=== PATIENT | female | born 1950 | race African-American/Black ===

== ENCOUNTER 2018-12-22 11:25 | Inpatient (IN) | payer MEDICARE, OTHER, MEDICAID ==
[~2018-12-22] VITALS: Ht 154.9 cm; Wt 49.9 kg
[~2018-12-22 11:25] MED LIST: METHODONE; NORVAIR
[2018-12-22 13:34] LABS: HEMATOCRIT. 30.4 % (36.0-48.0); HEMOGLOBIN. 9.7 g/dL (12.0-16.0); MEAN CORPUSCULAR HEMOGLOBIN 24.5 pg (28.0-32.0); MEAN CORPUSCULAR VOLUME 76.7 fL (81.0-99.0); MEAN PLATELET VOLUME 8.4 fl (7.4-10.4); PLATELET 174 x1000/uL (130-400); RED BLOOD CELL COUNT 3.97 mill/uL (4.2-5.4); RED CELL DISTRIBUTION WIDTH 17.4 % (11.6-14.6)
[2018-12-22 13:40] LABS: CHLORIDE 103 mEq/L (98-107)
[2018-12-22 13:44] LABS: ETHANOL BLOOD < 10 mg/dL
[2018-12-22 14:00] LABS: PLATELET ESTIMATE NORMAL
[2018-12-22] MEDS ORDERED: CLONIDINE 0.1MG TABLET PO PRN (15:30)
[2018-12-22] MEDS ORDERED: LEVOFLOXACIN 500MG PREMIX 100 ML IV SCH ×2 (15:30→17:30)
[2018-12-22] MEDS ORDERED: TRAMADOL 50MG TABLET PO PRN (15:30)
[2018-12-22] MEDS ORDERED: DIPHENHYDRAMINE 50MG/ML VIAL IV PRN (15:30)
[2018-12-22] MEDS ORDERED: IPRATROPIUM/ALBUTEROL 0.5-3(2.5)MG/3ML NEB INH PRN (15:30)
[2018-12-22] MEDS ORDERED: ONDANSETRON HCL 4MG/2ML INJ IV PRN (15:30)
[2018-12-22] MEDS ORDERED: LORAZEPAM 0.5MG TABLET PO PRN (15:30)
[2018-12-22] MEDS ORDERED: ACETAMINOPHEN 325MG TABLET PO PRN (15:30)
[2018-12-22] MEDS ORDERED: NITROGLYCERIN 0.4MG TABLET SL SL PRN (15:30)
[2018-12-22] MEDS ORDERED: MAGNESIUM/ALUMINUM HYDROXIDE/SIMETHICONE 30ML UDC PO PRN (15:30)
[2018-12-22] MEDS ORDERED: DOCUSATE SODIUM 100MG CAPSULE PO PRN (15:30)
[2018-12-22] MEDS ORDERED: GUAIFENESIN 200MG/10ML SUGAR FREE UDC PO PRN (15:30)
[2018-12-22 15:59] LABS: T4 FREE 1.45 ng/dL (0.76-1.46)
[2018-12-22 16:18] LABS: CLARITY URINE CLEAR (CLEAR); COLOR URINE DARK YELLOW (YELLOW); KETONES URINE TRACE (NEGATIVE); LEUKOCYTE ESTERASE URINE 1+ (NEGATIVE); NITRITE URINE NEGATIVE (NEGATIVE); OCCULT BLOOD URINE NEGATIVE (NEGATIVE); PROTEIN URINE TRACE (NEGATIVE)
[2018-12-22] MEDS ORDERED: SODIUM CHLORIDE 0.9% 1000ML BAG (SEPSIS BOLUS) IV ONE (16:30)
[2018-12-22 16:39] LABS: *AMPHETAMINES SCREEN URINE NEGATIVE (NEGATIVE); *BARBITURATES SCREEN URINE NEGATIVE (NEGATIVE); *BENZODIAZEPINES SCREEN URINE PRESUMTIVE POSITIVE (NEGATIVE)
[2018-12-22 16:40] LABS: *COCAINE SCREEN URINE PRESUMTIVE POSITIVE (NEGATIVE); CANNABINOID URINE SCREEN NEGATIVE (NEGATIVE); METHADONE URINE SCREEN NEGATIVE (NEGATIVE); OPIATES URINE SCREEN NEGATIVE (NEGATIVE); PHENCYCLIDINE URINE SCREEN NEGATIVE (NEGATIVE)
[2018-12-22 16:42] LABS: FOLIC ACID (FOLATE) SERUM >20 ng/mL ng/mL (>5.38)
[2018-12-22 16:53] LABS: VITAMIN B12 SERUM 1846 pg/mL (211-911)
[2018-12-22 17:04] LABS: HEPATITIS B SURFACE ANTIGEN NEGATIVE
[2018-12-22 17:33] LABS: HEPATITIS A AB IGM NEGATIVE (NEGATIVE)
[2018-12-22] MEDS: ENOXAPARIN 40MG/0.4ML SYR SUBCUT SCH (18:19)
[2018-12-22 22:45] VITALS: BP_SYST 136; BP_DIAS 81; BP_DIAS 84
[2018-12-23] VITALS (7 sets, daily range): BP systolic 107–135; BP diastolic 70–91
[2018-12-23] MEDS: FAMOTIDINE 20MG TABLET PO SCH ×2 (00:07→20:34)
[2018-12-23] MEDS: ZOLPIDEM TARTRATE 5MG TABLET PO PRN ×2 (00:08→23:47)
[2018-12-23] MEDS: KETOROLAC 15MG/ML VIAL IV PRN ×3 (00:09→20:35)
[2018-12-23] MEDS: SODIUM CHLORIDE 0.9% 1,000 ML IV SCH ×3 (00:10→18:00)
[2018-12-23] MEDS ORDERED: CEFTRIAXONE 1 G PREMIX 50 ML IV SCH ×2 (01:00→21:00)
[2018-12-23] MEDS ORDERED: ASPI-1159 PO (07:18)
[2018-12-23] MEDS ORDERED: ATOR20TA MT (07:18)
[2018-12-23] MEDS ORDERED: METO-539 MT (07:18)
[2018-12-23] MEDS ORDERED: DARU1TAB MT (07:18)
[2018-12-23] MEDS ORDERED: LISI-604 MT (07:18)
[2018-12-23] MEDS ORDERED: LEVOFLOXACIN 250MG PREMIX 50 ML IV SCH (18:00)
[2018-12-23] MEDS: ENOXAPARIN 40MG/0.4ML SYR SUBCUT SCH (19:39)
[2018-12-24] VITALS: BP 137/85
[2018-12-24 04:00] VITALS: BP 137/87
[2018-12-24] MEDS: SODIUM CHLORIDE 0.9% 1,000 ML IV SCH (04:38)
[2018-12-24 08:00] VITALS: BP 148/94
[2018-12-24] MEDS: KETOROLAC 15MG/ML VIAL IV PRN ×2 (08:53→16:50)
[2018-12-24 09:11] LABS: ABSOLUTE EOSINOPHILS 0.1 x10E3/uL (0.0-0.4); ABSOLUTE LYMPHOCYTES 1.1 x10E3/uL (0.7-3.1); ABSOLUTE MONOCYTES 0.3 x10E3/uL (0.1-0.9); ABSOLUTE NEUTROPHILS 1.2 x10E3/uL (1.4-7.0); BASOPHILS 0 % (Not Estab.); HEMATOCRIT 24.7 % (34.0-46.6); HEMOGLOBIN 8.3 g/dL (11.1-15.9); IMMATURE GRANULOCYTES 1 % (Not Estab.); LYMPHOCYTES 39 % (Not Estab.); MEAN CORPUSCULAR HGB CONC. 33.6 g/dL (31.5-35.7); MEAN CORPUSCULAR VOLUME 71 fL (79-97); MONOCYTES 13 % (Not Estab.); NEUTROPHILS 44 % (Not Estab.); PLATELETS 199 x10E3/uL (150-379); RBC 3.46 x10E6/uL (3.77-5.28); RED CELL DISTRIBUTION WIDTH 18.1 % (12.3-15.4); WBC 2.7 x10E3/uL (3.4-10.8)
[2018-12-24 15:06] LABS: % CD 4 POS. LYMPHOCYTES 44.4 % (30.8-58.5); % CD 8 POS. LYMPH 38.6 % (12.0-35.5); ABSOLUTE CD 3 913 /uL (622-2402); ABSOLUTE CD 4 HELPER 488 /uL (359-1519); ABSOLUTE CD 8 SUPPRESSOR 425 /uL (109-897); CD4/CD8 RATIO 1.15 (0.92-3.72)
[2018-12-24 18:31] VITALS: BP 145/86
== END 2018-12-24 18:44 | disposition short-term general hospital (02) | DRG 871 ==
LOC: ER 11:25 → EDBEDREQ 13:17 → 8WST 14:56 → EDBEDREQ 15:05 → SUPCPDRO 15:20 → EDBEDREQSVC 16:22 → ENRESERV 21:03 → 7WST 12-24 17:22
PROVIDERS: ADMIT Internal Medicine; ATTEND Internal Medicine
DX: A41.9 Sepsis, unspecified organism (principal); E43 Unspecified severe protein-calorie malnutrition; K72.00 Acute and subacute hepatic failure without coma; N39.0 Urinary tract infection, site not specified; E87.1 Hypo-osmolality and hyponatremia; R65.20 Severe sepsis without septic shock; E86.0 Dehydration; I10 Essential (primary) hypertension; B19.20 Unspecified viral hepatitis C without hepatic coma; F14.10 Cocaine abuse, uncomplicated; F17.210 Nicotine dependence, cigarettes, uncomplicated; Z96.649 Presence of unspecified artificial hip joint; I25.2 Old myocardial infarction; Z79.899 Other long term (current) drug therapy; Z68.20 Body mass index [BMI] 20.0-20.9, adult; Z71.51 Drug abuse counseling and surveillance of drug abuser; Z85.89 Personal history of malignant neoplasm of other organs and systems; Z85.819 Personal history of malignant neoplasm of unspecified site of lip, oral cavity, and pharynx
CPT/HCPCS: 36415; 71045; 80061; 80305; 80320; 82140; 82607; 82746; 83036; 83540; 83550; 83605; 84439; 84443; 84484; 86359; 86360; 86705; 86709; 86803; 87340; 93005; 93306; 93970; 96374; 97162; 97166; 99285; J0696; J1650; J1885; J1956; J7030; G0480